=== PATIENT | male | born 1955 | race Caucasian/White ===

== ENCOUNTER 2019-01-31 22:46 | Emergency (ER) | payer BC ==
[~2019-01-31] VITALS: Ht 175.3 cm; Wt 103.5 kg
[2019-01-31 22:54] VITALS: BP 197/93
--- NOTE | 2019-01-31 23:33 | NUR ---
PT AMBULATES FROM LOBBY TO ROOM WITH STEADY GAIT.
[2019-01-31] MEDS ORDERED: MAALOX/HYOSCYAMINE/LIDOCAINE 45 ML BTL ONE (23:55)
[2019-02-01] MEDS ORDERED: MAALOX/HYOSCYAMINE/LIDOCAINE 45 ML BTL PO ONE
--- NOTE | 2019-02-01 00:36 | NUR ---
PT D/C WITH D/C SUMMARY AND SCRIPTS. ALL QUESTIONS ANSWERED. PT AMBULATES TO REGISTRATION DESK WITH STEADY GAIT FOR D/C HOME.
== END 2019-02-01 00:43 | disposition home or self-care (01) ==
LOC: ED 02-01 00:25
DX: K21.9 Gastro-esophageal reflux disease without esophagitis (principal); R07.89 Other chest pain; E03.9 Hypothyroidism, unspecified
CPT/HCPCS: 93005; 99283